=== PATIENT | male | born 1975 | race Caucasian/White ===

== ENCOUNTER 2018-10-23 09:26 | Emergency (ER) | payer SELFPAY ==
[2018-10-23] MEDS: FLUORESCEIN STRIP LEFT EYE (10:07)
[2018-10-23] MEDS: TETRACAINE 0.5% 4 ML OPH LEFT EYE (10:07)
== END 2018-10-23 12:11 | disposition home or self-care (01) ==
LOC: FTE 09:26
DX: S05.02XA Injury of conjunctiva and corneal abrasion without foreign body, left eye, initial encounter (principal); E11.9 Type 2 diabetes mellitus without complications; X58.XXXA Exposure to other specified factors, initial encounter; Y92.9 Unspecified place or not applicable
CPT/HCPCS: 76536; 99284-25